=== PATIENT | female | born 2000 | race Asian ===

== ENCOUNTER 2020-05-20 14:54 | Emergency (ER) | payer BC ==
[~2020-05-20] VITALS: Ht 165.1 cm; Wt 70.0 kg
[2020-05-20 15:02] VITALS: BP 135/82
[2020-05-20] MEDS ORDERED: SULF1TAB49 PO (15:06)
== END 2020-05-20 15:19 | disposition home or self-care (01) ==
LOC: ER 14:56
DX: S00.86XA Insect bite (nonvenomous) of other part of head, initial encounter (principal); S40.862A Insect bite (nonvenomous) of left upper arm, initial encounter; S40.861A Insect bite (nonvenomous) of right upper arm, initial encounter; S80.862A Insect bite (nonvenomous), left lower leg, initial encounter; S80.861A Insect bite (nonvenomous), right lower leg, initial encounter; L03.119 Cellulitis of unspecified part of limb; Z79.2 Long term (current) use of antibiotics; W57.XXXA Bitten or stung by nonvenomous insect and other nonvenomous arthropods, initial encounter; Y93.89 Activity, other specified; Y92.89 Other specified places as the place of occurrence of the external cause; Y99.8 Other external cause status
CPT/HCPCS: 99283